=== PATIENT | female | born 1980 | race Caucasian/White ===

== ENCOUNTER 2022-11-29 02:53 | Emergency (ER) | payer MEDICAID ==
[~2022-11-29 02:53] MED LIST: FERR-43
[2022-11-29] MEDS ORDERED: IBUPROFEN 600MG TABLET ONE (04:32)
[2022-11-29] MEDS ORDERED: ACETAMINOPHEN 500MG TABLET ONE (04:33)
[2022-11-29] MEDS ORDERED: NAPR-1176 MT (05:49)
== END 2022-11-29 10:47 | disposition home or self-care (01) ==
LOC: ER 02:53
DX: S16.1XXA Strain of muscle, fascia and tendon at neck level, initial encounter (principal); S20.219A Contusion of unspecified front wall of thorax, initial encounter; V49.9XXA Car occupant (driver) (passenger) injured in unspecified traffic accident, initial encounter; Y93.89 Activity, other specified; Y92.89 Other specified places as the place of occurrence of the external cause; Y99.8 Other external cause status
CPT/HCPCS: 71045; 81025; 99284